=== PATIENT | male | born 2000 | race Hispanic/Latino ===

== ENCOUNTER 2023-06-16 13:46 | Emergency (ER) | payer SELFPAY ==
[2023-06-16] MEDS ORDERED: Ketorolac Tromethamine 30 MG/ML VIAL ONE (14:04)
== END 2023-06-16 15:07 | disposition home or self-care (01) ==
LOC: CSHERS 13:46
DX: M25.562 Pain in left knee (principal)
CPT/HCPCS: 96374; J1885